=== PATIENT | male | born 1955 | race Caucasian/White ===

== ENCOUNTER → 2023-04-07 15:10 | Outpatient (REF) | payer BC, SELFPAY | LOC: RAD 15:10 | PROVIDERS: ATTENDING PHYSICIAN Nurse Practitioner Family; FAMILY PHYSICIAN Nurse Practitioner Primary Care | DX: R42 Dizziness and giddiness (principal); E78.5 Hyperlipidemia, unspecified; R09.89 Other specified symptoms and signs involving the circulatory and respiratory systems | CPT/HCPCS: 93880 ==

== ENCOUNTER → 2023-07-30 11:19 | Outpatient (REF) | payer BC, SELFPAY | LOC: RAD 11:19 | PROVIDERS: ATTENDING PHYSICIAN Nurse Practitioner Family | DX: M54.42 Lumbago with sciatica, left side (principal) | CPT/HCPCS: 72110 ==

== ENCOUNTER → 2023-10-02 11:09 | Outpatient (REF) | payer BC, SELFPAY | LOC: HWRAD 11:09 | PROVIDERS: ATTENDING PHYSICIAN Nurse Practitioner Family | DX: M25.511 Pain in right shoulder (principal); M79.601 Pain in right arm | CPT/HCPCS: 73030 ==

== ENCOUNTER → 2024-04-05 13:34 | Outpatient (REF) | payer BC, SELFPAY | LOC: RAD 13:34 | PROVIDERS: ATTENDING PHYSICIAN Internal Medicine Gastroenterology; FAMILY PHYSICIAN Nurse Practitioner Primary Care | DX: K63.3 Ulcer of intestine (principal) | CPT/HCPCS: 74177; Q9967 ==

== ENCOUNTER 2024-07-19 13:34 | Emergency (ER) | payer BC, SELFPAY ==
[2024-07-19 13:37] VITALS: BP 129/94
--- NOTE | 2024-07-19 16:02 | ED.GENMED ---
History of Present Illness
General
Chief Complaint: Musculo-Skeletal Complaint
Source: patient
Time Seen by Provider: 07/19/24 15:34
History of Present Illness
History of Present Illness:
68-year-old male with past medical history of hyperlipidemia, GERD presenting to the emergency department for evaluation of left forearm edema and difficulty flexing the wrist after he was taking objects out of his truck and noticed the abnormality.
Patient states he has a history of surgery to the same left hand/wrist area from many years ago. Denies any focal weakness or numbness. States there is minimal pain at rest and only some mild discomfort with attempted wrist flexion. No other
concerns.
Past History
Past History
ED Past Medical History: GERD, Hypercholesterolemia and Psychiatric
ED Past Surgical History: Orthopedic
Social History
Tobacco: Non-smoker
Alcohol: Occasional
Drug: None
Personal:
Living: with family
Review of Systems
Review of Systems
All Other Systems: ROS reviewed and negative except as documented in HPI and ROS
Phy Exam
Physical Exam
Physical Exam:
GENERAL: Alert , in no apparent distress
EYE: conjunctiva clear
Head: Normocephalic atraumatic
NECK: Supple,
ENT: mmm.
LUNGS: no acute respiratory distress
NEUROLOGICAL: Alert and oriented
SKIN: Warm and dry, skin intact.
MUSCULOSKELETAL: Left upper extremity: There is deformity of the proximal wrist on the volar aspect with moderate soft tissue swelling noted. Patient having difficulty flexing the wrist but is able to extend without difficulty. Easily palpable
radial pulse. Cap refill less than 2 seconds. Sensation grossly intact to light touch.
PSYCH: Normal and appropriate interaction.
Scores
Heart Failure Risk
Heart Failure Risk Score: Not Applicable
Heart Score for Chest Pain Patients
STEMI patient?: Not applicable
Withdrawal Assessment of Alcohol
Withdrawal Assessment Completed?: Not applicable
Course
Orders/Labs/Results
Orders:
Orders
07/19/24 13:41
CR Hand - Left Min 3 Views Urgent
Reason For Exam: pain
CR Wrist - Left Min 3 Views Urgent
Comment:
Reason For Exam: pain
Vital Signs
Initial and Last Documented VS:
Initial Vital Signs
Temp Pulse Resp BP Pulse Ox
97.9 F 72 20 129/94 97
07/19/24 13:37 07/19/24 13:37 07/19/24 13:37 07/19/24 13:37 07/19/24 13:37
Last Documented Vital Signs
Temp Pulse Resp BP Pulse Ox
97.9 F 72 20 129/94 97
07/19/24 13:37 07/19/24 13:37 07/19/24 13:37 07/19/24 13:37 07/19/24 13:37
Procedures
Splinting/Sling Placement
Left Wrist:
Procedure completed by: Chacorta
Pre-splint extermity exam: neurovascular intact
Type of splint: volar
Splint material: other (3in orthoglass)
Splint checked by provider?: Yes
MDM/Problems Addressed
Differential Diagnosis Includes:
Tendon injury, fracture, dislocation, less concern for vascular etiology
MDM/Problems Addressed:
68-year-old male presenting to the emergency department for evaluation of a left upper extremity/wrist deformity from when he was lifting objects out of his lift gate from his truck. History of surgery to this area many years ago. Based off of
exam I am most concerned for a flexor tendon injury. X-ray shows soft tissue swelling but no fracture or dislocation. Patient placed in a volar wrist splint as above. Will follow-up with orthopedic provider. Aware of return precautions. Stable
for discharge.
*Critical Care Note
Total Time (30-74mins, 75-104mins- exclusive of procedures): Not Applicable
ED Attending Note
-
Portions of this chart may have been created with voice recognition software.� Occasional wrong word or��sound alike� substitutions may have occurred due to the inherent limitations of voice recognition software.
Discharge Plan
Departure
Patient Disposition: Home (Routine Discharge)
Date of Disposition: 07/19/24
Time of Disposition: 16:02
Patient with high blood pressure during this ER visit?: No
Discharge Problem:
Injury of left forearm
Instructions: Tendinopathy (DC)
Prescriptions:
No Action
ezetimibe-simvastatin 1 TABLET tablet
1 tab DAILY
Referrals:
Karina Marcos CRNP [Family Provider] -
Mor Cruz MD [Active] -
Interventions
Interventions:
*Risk Screen - Suicide Last Done: 07/19/24 13:37
*General Assessment Last Done: 07/19/24 13:37
*Neglect/Abuse Screening Last Done: 07/19/24 13:37
*ED COVID-19 Vaccine History Last Done: 07/19/24 14:01
*Nursing Disposition Last Done: 07/19/24 16:10
ED-Musculoskeletal Assessment Last Done: 07/19/24 14:01
Discharge Date and Time
Discharge Date/Time: 07/19/24 16:10
Print Language: NAURUAN
== END 2024-07-19 16:10 | disposition home or self-care (01) ==
LOC: EMR 13:34
PROVIDERS: EMERGENCY PHYSICIAN Emergency Medicine; FAMILY PHYSICIAN Nurse Practitioner Primary Care
DX: S59.812A Other specified injuries left forearm, initial encounter (principal); X58.XXXA Exposure to other specified factors, initial encounter; E78.00 Pure hypercholesterolemia, unspecified
CPT/HCPCS: 29125; 99283; 73110; 73130

== ENCOUNTER → 2024-12-05 10:20 | Outpatient (REF) | payer OTHER, SELFPAY | LOC: RCS 10:20 | PROVIDERS: ATTENDING PHYSICIAN Nurse Practitioner Primary Care | DX: R00.2 Palpitations (principal) | CPT/HCPCS: 93225; 93226 ==

== ENCOUNTER → 2025-01-05 08:29 | Outpatient (REF) | payer OTHER, SELFPAY | LOC: RCS 08:29 | PROVIDERS: ATTENDING PHYSICIAN Internal Medicine; FAMILY PHYSICIAN Nurse Practitioner Primary Care | DX: R07.9 Chest pain, unspecified (principal); R55 Syncope and collapse; I47.10 Supraventricular tachycardia, unspecified | CPT/HCPCS: 93017 ==

== ENCOUNTER → 2025-02-02 10:14 | Outpatient (REF) | payer OTHER, SELFPAY | LOC: RCS 10:14 | PROVIDERS: ATTENDING PHYSICIAN Internal Medicine; FAMILY PHYSICIAN Nurse Practitioner Primary Care | DX: R07.9 Chest pain, unspecified (principal); R55 Syncope and collapse; I47.10 Supraventricular tachycardia, unspecified | CPT/HCPCS: 93306 ==

== ENCOUNTER → 2025-02-06 16:56 | Outpatient (REF) | payer SELFPAY | LOC: RAD 16:56 | PROVIDERS: ATTENDING PHYSICIAN Internal Medicine; FAMILY PHYSICIAN Nurse Practitioner Primary Care | DX: E78.00 Pure hypercholesterolemia, unspecified (principal); Z71.89 Other specified counseling; Z82.49 Family history of ischemic heart disease and other diseases of the circulatory system | CPT/HCPCS: 75571 ==